=== PATIENT | female | born 1990 | race Caucasian/White ===

== ENCOUNTER → 2016-08-24 | Day surgery (SDC) | payer BC ==
[~2016-08-24] MED LIST: Bupivacaine 0.25% 30 ML SDV ONE; HYDROmorphone 0.5 MG/0.5 ML Syringe IVPUSH PRN; Lactated Ringers 1,000 ML IV SCH; Lactated Ringers 1,000 ML ONE; Lidocaine 1% 4 ML ONE; Lidocaine 1%/Sod Bicarbonate in NS 8.4% 1 ML Syringe PRN; Midazolam 1 MG/ML 2 ML SDV ONE; Ondansetron 4 MG/2 ML SDV ONE; Propofol 200 MG/20 ML SDV ONE; Sodium Chloride 0.9% 10 ML Syringe FLUSH PRN; fentaNYL 100 MCG/2 ML SDV ONE; fentaNYL 250 MCG/5 ML SDV IVPUSH PRN; fentaNYL 250 MCG/5 ML SDV ONE
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
--- NOTE | 2016-08-24 18:09 | PCM.POSTAN ---
POST ANESTHESIA ASSESSMENT - MENTAL STATUS Mental Status: alert, oriented - VITAL SIGNS Pulse Rate: 84 SaO2: 98 Resp Rate: 14 Blood Pressure: 122/70 Temperature: 36.9 C - RESPIRATORY Respiratory Status: respiratory rate WNL, airway patent, O2 saturation stable, supplemental oxygen - CARDIOVASCULAR CV Status: pulse rate WNL, blood pressure stable - GASTROINTESTINAL GI Status: no symptoms - PAIN Pain Score: 2 - POST OP HYDRATION Hydration Status: adequate & stable - OBSERVATIONS Free Text/Narrative:: no anesthesia complications noted
[2016-08-24 19:16] VITALS: BP 115/62
--- NOTE | 2016-08-25 08:37 | CR ---
Right ankle: Two fluoroscopic spot views utilizing C-arm were obtained of the right ankle. Comparison: No previous ankle study. Multiple lucencies are seen within the distal fibula compatible with previous plate and screws which have been removed. Ankle mortise is symmetric. No additional abnormality is seen on this two-view fluoroscopic study. Fluoroscopy time given as 4.8 seconds. Impression: 1. Procedural study as described above. Diagnostic code #2
--- NOTE | 2016-08-25 13:22 | PCM.OPNOTE ---
- General Post-Op/Procedure Note Date of Surgery/Procedure: 08/24/16 Operative Procedure(s): right ankle hardware removal Pre Op Diagnosis: painful right ankle hardware Post-Op Diagnosis: Same Anesthesia Technique: General LMA, Local Primary Surgeon: Elliot Lake Anesthesia Provider: Delbert Tripathi Wait Staff: Gabrielle Enciso EBL in mLs: 5 Complications: None Condition: Good Free Text/Narrative:: Intake & Output 08/24/16 08/25/16 08/25/16 22:59 06:59 14:59 Intake Total 250 Balance 250
--- NOTE | 2016-08-25 13:49 | OR ---
DATE OF OPERATION: 08/24/2016 SURGEON: Elliot Lake MD OPERATION PERFORMED: Right ankle hardware removal. PREOPERATIVE DIAGNOSIS: Painful right ankle hardware. POSTOPERATIVE DIAGNOSIS: Painful right ankle hardware. ANESTHESIA: General LMA with local. ANESTHESIA PROVIDER: Delbert Tripathi CRNA IMAGING AIDE: EFRAIN Grace. ESTIMATED BLOOD LOSS: Less than 5 mL. COMPLICATIONS: None. CONDITION: Stable. DESCRIPTION OF PROCEDURE: The patient was identified in the preop holding area. Proper site was marked and identified by the surgeon. The patient was taken back to the operating theater where after adequate anesthesia, the patient's right lower extremity was sterilely prepped and draped in the usual sterile fashion. OR time-out was performed. The patient received 2 g of IV Ancef. At this time, right lower extremity was exsanguinated and tourniquet was insufflated to 250 mmHg on the nonsterile tourniquet. Previous incision was utilized. Blunt dissection was taken down to the plate. Plate was identified. All 6 screws were identified. All 6 screws and the plate were then removed. Curette was then used to curette all the previous screw holes and adequate saline was then irrigated through the wound. A 2-0 Vicryl was used subcutaneously and [place] were used for the skin. The patient tolerated the procedure well and sent to PACU in stable condition. CONRADO /[id number]
== END | disposition home or self-care (01) ==
LOC: JD.SDS 13:39
PROVIDERS: ATTEND Orthopaedic Surgery
DX: Z47.2 Encounter for removal of internal fixation device (principal); E66.9 Obesity, unspecified; F32.9 Major depressive disorder, single episode, unspecified; Z79.82 Long term (current) use of aspirin; Z90.49 Acquired absence of other specified parts of digestive tract; Z98.890 Other specified postprocedural states; F17.210 Nicotine dependence, cigarettes, uncomplicated; Z79.899 Other long term (current) drug therapy
CPT/HCPCS: 20680; 76000; 81025; 87641; J2250; J2405; J3010; J7120; 01480; J2704; J3490